=== PATIENT | female | born 1965 | race Asian ===

== ENCOUNTER 2017-09-12 08:48 | Day surgery (SDC) | payer BC ==
[2017-09-12] VITALS (8 sets, daily range): BP systolic 101–142; BP diastolic 71–77
[~2017-09-12] VITALS: Ht 160 cm; Wt 52.6 kg
--- NOTE | 2017-09-12 06:54 | Anethesia Preoperative Eval ---
Anesthesia Pre-op PMH/ROS General Date of Evaluation: Sep 12, 2017 Time of Evaluation: 06:54 Anesthesiologist: rich ASA Score: ASA 2 Mallampati Score Class I : Soft palate, uvula, fauces, pillars visible Class II: Soft palate, uvula, fauces visible Class III: Soft palate, base of uvula visible Class IV: Only hard plate visible Mallampati Classification: Class II Surgeon: navin Diagnosis: colon screening Surgical Procedure: colonoscopy Anesthesia History: none Social History: smoking - nonsmoker Family History: no anesthesia problems Allergies: Coded Allergies: NO KNOWN ALLERGIES (Unverified Allergy, Unknown, 07/13/15) Medications: see eMAR Anesthesia Pre-op Phys. Exam Physician Exam Constitutional: NAD Neurologic: CN 2-12 intact Cardiovascular: RRR Respiratory: CTA Gastrointestinal: S/NT/ND Airway Exam Mallampati Score: Class II MO: full Neck: supple TMD: 2fb ROM: full Teeth: intact Anesthesia Pre-op A/P Risk Assessment & Plan Assessment: asa2 Plan: mac Status Change Before Surgery: No Pre-Antibiotics Drug: CANDELARIO Abraham Sep 12, 2017 06:54
[~2017-09-12 08:48] MED LIST: Atropine Inj 1mg/10ml Syr IV PRN; DiphenhydrAMINE 50mg/ml Inj IVP PRN; LR 1000ml 1,000 ML IVLG SCH; Midazolam 2mg/2ml Inj IVP PRN; fentaNYL 100 mcg/2 mL IV PRN
[2017-09-12] MEDS ORDERED: VIT D PO (09:35)
[2017-09-12] MEDS ORDERED: MULTIVITAMINS1 EAC2 ORAL (09:36)
[2017-09-12] MEDS ORDERED: CALCIUM 600 +1 EAC8 PO (09:37)
[2017-09-12] MEDS ORDERED: FISH OIL CAP1000 MG ORAL (09:38)
[2017-09-12] MEDS ORDERED: MAGNESIUM500 MG PO (09:39)
[2017-09-12] MEDS ORDERED: Propofol 200mg/20ml IV ONE (10:30)
[2017-09-12] MEDS ORDERED: LR 1000ml ONE (10:30)
[2017-09-12] MEDS ORDERED: Lidocaine 1% MPF 10mg/ml 5ml ONE (10:30)
--- NOTE | 2017-09-12 11:11 | Pre-Procedure Note/Attestation ---
Pre-Procedure Note/Attestation Complete Prior to Procedure Planned Procedure: not applicable Procedure Narrative: screening colon Indications for Procedure Pre-Operative Diagnosis: screening Attestation I attest that I discussed the nature of the procedure; its benefits; risks and complications; and alternatives (and the risks and benefits of such alternatives ), prior to the procedure, with the patient (or the patient's legal patient portal representative). I attest that, if there was a reasonable possibility of needing a blood transfusion, the patient (or the patient's legal patient portal representative) was given the [facility] standardized written summary, pursuant to the [employer] Blood Safety Act ([place] Health and Safety Code # 1645, as amended). I attest that I re-evaluated the patient just prior to the surgery and that there has been no change in the patient's H&P, except as documented below: WOJCIECH VARGAS Sep 12, 2017 11:11
--- NOTE | 2017-09-12 11:13 | Endoscopy Procedure Note ---
Endoscopy Procedure Note Indication for Procedure: screen Procedures Performed: colonoscopy Operative Findings/Diagnosis: normal Specimen: none Pt Tolerated Procedure Well: Yes Estimated Blood Loss: none Anesthesiologist: Saeid dobbs Anesthesia: MAC Medication Given: see anesthesia record Implant(s) used?: No 50 yrs or older w/o bx or poly: Yes 10yrs. F/U not recommended: Yes If not recommended, why?: 10 yrs. F/U needed: Yes 18 years or older w/prev. colo: No <3yrs. since last colonoscopy: No Med reason:<3 yrs.: System Reason:<3 yrs.: Last colonoscopy >= to 3yrs: Yes - next colon in 10 years WOJCIECH VARGAS Sep 12, 2017 11:13
--- NOTE | 2017-09-12 11:14 | Brief Operative Note ---
Immediate Post Operative Note Operative Note Chief Complaint: screening Pre-op Diagnosis: screening Procedure: colon Post-op Diagnosis: normal Surgeon: navin Anesthesiologist: Saeid dobbs Anesthesia: MAC Specimen: none Complications: none Fluids: see charting Estimated Blood Loss: none Drains: none Implant(s) used?: No WOJCIECH VARGAS Sep 12, 2017 11:14
--- NOTE | 2017-09-12 11:36 | Immediate Post-Op Evaluation ---
Immediate Post-Op Evalulation Immediate Post-Op Evalulation Procedure: colonoscopy Date of Evaluation: Sep 12, 2017 Time of Evaluation: 11:18 IV Fluids: 400ml lr Blood Products: none Estimated Blood Loss: negligible Blood Pressure Systolic: 113 Blood Pressure Diastolic: 71 Pulse Rate: 62 Respiratory Rate: 18 O2 Sat by Pulse Oximetry: 100 Temperature (Fahrenheit): 97.7 Pain Score (1-10): 0 Nausea: No Vomiting: No Complications none Patient Status: awake, reacts, patent Hydration Status: adequate Drug: CANDELARIO Abraham Sep 12, 2017 11:36
--- NOTE | 2017-09-12 11:37 | 48 Hour Post Anesthesia Eval ---
Post Anesthesia Evaluation Procedure: colonoscopy Date of Evaluation: Sep 12, 2017 Time of Evaluation: 11:20 Blood Pressure Systolic: 111 0: 77 Pulse Rate: 66 Respiratory Rate: 18 Temperature (Fahrenheit): 97.7 O2 Sat by Pulse Oximetry: 100 Airway: patent Nausea: No Vomiting: No Pain Intensity: 0 Hydration Status: adequate Cardiopulmonary Status: stable Mental Status/LOC: patient returned to baseline Post-Anesthesia Complications: none Follow-up care needed: N/A CANDELARIO AMOR Sep 12, 2017 11:37
--- NOTE | 2017-09-12 20:30 | Procedure Note ---
DATE OF PROCEDURE: 09/12/2017 GASTROENTEROLOGY PROCEDURE REPORT PROCEDURE: Screening colonoscopy. SURGEON: Diann Baptiste M.D. ANESTHESIOLOGIST: Ashley Hawley M.D. PRE-ENDOSCOPIC DIAGNOSIS: Screening. POST-ENDOSCOPIC DIAGNOSIS: Normal colonoscopy including the terminal ileum. DESCRIPTION OF PROCEDURE: The procedure, its risks, indications, alternatives, and possible complications were explained and informed consent was obtained. The patient was then sedated and rectal exam was done, which was unremarkable. The colonoscope was introduced into the rectum and advanced to 10 cm into the terminal ileum. The colonoscope was then gradually withdrawn and the mucosa examined carefully. Examination of the mucosa revealed no abnormalities. Retroflexed view of the rectum was unremarkable. The colonoscope was removed. The patient was sent to recovery in good condition. COMPLICATIONS: None. RECOMMENDATIONS: 1. Follow up with primary physician. 2. Repeat colonoscopy in 10 years. Diann Baptiste M.D. DR: Adriana JOB#: [id number] CC: Diann Baptiste M.D.; Fax#: [phone]
== END 2017-09-12 12:25 | disposition home or self-care (01) ==
LOC: GAS 08:48
DX: Z12.11 Encounter for screening for malignant neoplasm of colon (principal)
CPT/HCPCS: 45378; J2704; J7120; 94003; 94150